=== PATIENT | male | born 1955 | race Caucasian/White ===

== ENCOUNTER 2024-02-15 15:16 | Emergency (ER) | payer BC, OTHER ==
[~2024-02-15] VITALS: Ht 170.2 cm; Wt 90.7 kg
[2024-02-15] MEDS: ONDANSETRON HCL/PF 4 MG/2 ML VIAL IVP ONE (16:00)
[2024-02-15] MEDS: KETOROLAC TROMETHAMINE INJ 30 MG/ML VIAL IV ONE (16:02)
[2024-02-15] MEDS: IV NS 0.9% 1,000 ML BAG IV ONE (16:05)
[2024-02-15] MEDS ORDERED: KETOROLAC TROMETHAMINE INJ 30 MG/ML VIAL ONE (16:15)
[2024-02-15] MEDS ORDERED: ONDANSETRON HCL/PF 4 MG/2 ML VIAL ONE (16:15)
[2024-02-15] MEDS: MORPHINE SULFATE INJ 2 MG/ML DISP.SYRIN IV ONE (16:16)
[2024-02-15 16:48] LABS: BASOPHILS # (AUTO) 0.1 K/uL (0.0-0.2); BASOPHILS % (AUTO) 0.4 % (0.0-2.0); HEMATOCRIT 47 % (39-51); HEMOGLOBIN 15.9 g/dL (13.5-17.5); LYMPHOCYTES # (AUTO) 1.5 K/uL (0.8-4.8); LYMPHOCYTES % (AUTO) 11.4 % (20.0-44.0); MEAN CORPUSCULAR HEMOGLOBIN 28 PG (26.0-33.0); MEAN CORPUSCULAR HGB CONC 34 g/dl (31.0-36.0); MEAN CORPUSCULAR VOLUME 82 fL (80-96); MONOCYTES # (AUTO) 0.9 K/uL (0.1-1.30); MONOCYTES % (AUTO) 6.9 % (2.0-12.0); NEUTROPHILS # (AUTO) 10.6 K/uL (1.8-8.9); NEUTROPHILS % (AUTO) 81.3 % (43.0-81.0); PLATELET COUNT (AUTO) 304 K/uL (150-450); RED BLOOD CELL COUNT(AUTO) 5.77 MIL/uL (4.5-6.0); RED CELL DISTRIBUTION WIDTH 12.7 % (11.5-15.0); WHITE BLOOD COUNT (AUTO) 13.1 K/uL (4.3-11.0)
[2024-02-15 16:56] LABS: INR 1.04 (0.91-1.10); PARTIAL THROMBOPLASTIN TIME 26.1 SEC (24.3-34.3)
[2024-02-15 17:03] LABS: CALCIUM, SERUM 9.5 mg/dL (8.5-10.1); CREATININE 0.9 mg/dL (0.6-1.3); POTASSIUM 2.9 mmol/L (3.5-5.1)
[2024-02-15 17:09] LABS: ALBUMIN 3.7 g/dL (3.4-5.0); BILIRUBIN,DIRECT 0.2 mg/dL (0.0-0.2); BILIRUBIN,TOTAL 0.9 mg/dL (0.2-1.0); TOTAL PROTEIN, SERUM 7.1 g/dL (6.4-8.2)
[2024-02-15 17:10] LABS: LACTIC ACID 1.8 mmol/L (0.4-2.0)
[2024-02-15] MEDS ORDERED: IOHEXOL-300 100 ML VIAL IV ONE (17:54)
[2024-02-15] MEDS ORDERED: IV NS 0.9% 250 ML IV ONE (17:54)
[2024-02-15] MEDS ORDERED: PANTOPRAZOLE 40 MG VIAL ONE (19:25)
[2024-02-15] MEDS ORDERED: MAG HYDROX/AL HYDROX/SIMETH 30 ML UDC ONE (19:25)
[2024-02-15] MEDS ORDERED: LIDOCAINE VISCOUS 2% UD 15 ML UDC ONE (19:25)
[2024-02-15] MEDS: MAG HYDROX/AL HYDROX/SIMETH 30 ML UDC PO ONE (19:30)
[2024-02-15] MEDS: PANTOPRAZOLE 40 MG VIAL IV ONE (19:30)
[2024-02-15] MEDS: LIDOCAINE VISCOUS 2% UD 15 ML UDC MM ONE (19:30)
[2024-02-15] MEDS ORDERED: METOCLOPRAMIDE HCL 10 MG/2 ML VIAL ONE (19:31)
[2024-02-15] MEDS: METOCLOPRAMIDE HCL 10 MG/2 ML VIAL IV ONE (19:40)
[2024-02-15] MEDS ORDERED: ONDA4TAB11 PO (20:24)
[2024-02-15] MEDS ORDERED: KETO10TA2 PO (20:24)
[2024-02-15] MEDS ORDERED: PANT40TA2 PO (20:24)
[2024-02-15] MEDS ORDERED: FAMO20TA80 PO (20:24)
[2024-02-15] MEDS ORDERED: MAG-55 PO (20:24)
[2024-02-15 20:31] LABS: APPEARANCE,URINE CLEAR (CLEAR); BILIRUBIN,URINE NEGATIVE (NEGATIVE); BLOOD, URINE NEGATIVE Ery/uL (NEGATIVE); COLOR,URINE YELLOW (YELLOW); KETONES,URINE 1+ mg/dL (NEGATIVE); LEUKOCYTE ESTERASE ,URINE NEGATIVE (NEGATIVE); NITRITE, URINE NEGATIVE (NEGATIVE); PH,URINE 8.5 (5.0-8.0); PROTEIN,URINE 1+ mg/dl (NEGATIVE); UGLUCOSE NEGATIVE (NEGATIVE)
[2024-02-15 20:33] VITALS: BP 179/69; TEMP 99.1; O2SAT 98
[2024-02-15 20:42] LABS: ADD URINE CULTURE NO; BACTERIA,URINE Rare /HPF (None Seen); RBC,URINE 0-2 /HPF (0-2); SQUAMOUS EPITHELIAL CELL,UR 0-2 /HPF (None Seen); WBC,URINE 0-2 /HPF (0-3)
== END 2024-02-15 20:33 | disposition home or self-care (01) ==
LOC: ER 15:29
DX: K29.70 Gastritis, unspecified, without bleeding (principal); R10.31 Right lower quadrant pain; R11.2 Nausea with vomiting, unspecified
CPT/HCPCS: 99285; 74177; 96374; 96375; 96361; 85025; 80048; 83605; 83690; 80076; 81001; 36415; 85730; J2765; J1885; J2405; J7030; J7050; J2470; A4223; Q9967